=== PATIENT | male | born 1950 | race Caucasian/White ===

== ENCOUNTER 2020-09-13 15:32 | Outpatient (RCR) | payer BC, SELFPAY | END 2020-09-13 23:59 | LOC: IMMUN 15:32 | PROVIDERS: PCP Family Medicine; Visit Provider Family Medicine | DX: Z23 Encounter for immunization (principal) | CPT/HCPCS: 0011A; 0012A ==

== ENCOUNTER → 2021-05-03 14:23 | Outpatient (CLI) | payer BC, SELFPAY ==
[2021-05-03 18:10] LABS: Absolute Lymphocyte Count 1.21 X10^3/uL (0.83-4.51); Absolute Neutrophil Count 3.6 X10^3/uL (2.0-7.7); Basophil# 0.04 X10^3/uL; Basophil% 0.7 % (0-1); Eosinophil# 0.18 X10^3/uL; Eosinophils% 3.2 % (0-5); Hematocrit 42.1 % (40-54); Hemoglobin 14.4 g/dL (13.0-16.5); Lymphocyte # 1.21 X10^3/ul (0.83-4.51); Lymphocyte % 21.8 % (19-41); Mean Corp Hgb Conc 34.2 g/dL (32-36); Mean Corpuscular Volume 90.5 fL (80-94); Mean Platelet Vol. 9.2 fl (6.2-12.0); Monocyte# 0.55 X10^3/uL; Monocyte% 9.9 % (0-10); NRBC Flagged by Analyzer 0 % (0-5); Neutrophil # 3.55 X10^3/uL (2.7-7.7); Neutrophil % 64.2 % (47-70); Platelet Count 374 K/mm3 (150-450); RBC Distribution Width CV 12.6 % (11.6-14.6); RBC Distribution Width SD 41.5 fl (35.1-43.9); Red Blood Count 4.65 M/mm3 (4.6-6.2); White Blood Count 5.5 K/mm3 (4.4-11.0)
[2021-05-03 18:31] LABS: Erythrocyte Sedimentation Rate 2 mm/hr (0-20)
[2021-05-03 19:03] LABS: ALB/GLOB Ratio 1.1 RATIO (0.9-2.4); AST(SGOT) 18 U/L (15-37); Alanine Aminotransfer ALT/SGPT 25 U/L (16-61); Albumin, Serum 3.7 g/dL (3.2-5.0); Alkaline Phosphatase 57 U/L (45-117); Anion Gap 11 (5-15); BUN 14 mg/dL (7-18); BUN/Creat Ratio 14.4 RATIO (10-20); CRP < 2.90 mg/L (0.0-3.0); Calcium,Total 8.9 mg/dL (8.5-10.1); Chloride 104 mmol/L (98-107); Creatinine, Serum 0.98 mg/dL (0.70-1.30); EST Glomerular Filtration Rate 80 mL/min (>60); Est Glom Filt Rate - Afr Amer 97 mL/min (>60); Globulin 3.4 g/dL (2.2-4.2); Glucose 124 mg/dL (74-106); Potassium 3.9 mmol/L (3.5-5.1); Protein, Total 7.1 g/dL (6.4-8.2); Rheumatoid Factor < 10.0 IU/mL (<15); Sodium Level 139 mmol/L (136-145); Thyroid Stim Hormone (TSH) 0.89 uIU/mL (0.358-3.74)
[2021-05-05 15:08] LABS: PROEL- A/G Ratio 1.2 (0.7-1.7); PROEL- Albumin 3.6 g/dL (2.9-4.4); PROEL- Alpha-1 Globulin 0.3 g/dL (0.0-0.4); PROEL- Alpha-2 Globulin 0.6 g/dL (0.4-1.0); PROEL- Globulin, Total 2.9 g/dL (2.2-3.9); PROEL- TOTAL PROTEIN 6.5 g/dL (6.0-8.5)
[2021-05-05 15:20] LABS: ANTINUCLEAR ANTIBODIES DIRECT Negative (Negative)
== END ==
PROVIDERS: PCP Family Medicine; Referring Provider Family Medicine; Visit Provider Family Medicine
DX: R61 Generalized hyperhidrosis (principal)
CPT/HCPCS: 36415; 80053; 84165; 84443; 85025; 85652; 86038; 86140; 86431

== ENCOUNTER → 2022-08-11 | Outpatient (CLI) | payer BC, SELFPAY ==
[2022-08-11 18:16] LABS: AST(SGOT) 25 U/L (15-37); Alanine Aminotransfer ALT/SGPT 30 U/L (16-61); Cholesterol 186 mg/dL (200); High Density Lipoprotein 46 mg/dL; Triglycerides 253 mg/dL; Very Low Density Lipoprotein 51 mg/dL (5-40)
== END | disposition home or self-care (01) ==
LOC: MFPLAB 16:08
PROVIDERS: PCP Family Medicine; Referring Provider Family Medicine; Visit Provider Family Medicine
DX: E78.5 Hyperlipidemia, unspecified (principal); Z12.5 Encounter for screening for malignant neoplasm of prostate
CPT/HCPCS: 36415; 80061; 84153; 84450; 84460; G0103

== ENCOUNTER 2025-05-03 18:12 | Emergency (ER) | payer BC, SELFPAY ==
[2025-05-03 18:13] VITALS: BP 158/80; PULSE 87; RESP 16; TEMP 36.6; O2SAT 98; BMI 26.6
--- NOTE | 2025-05-03 20:06 | EDS_ITS ---
HPI History of Present Illness HPI Narrative: 74-year-old male left index finger laceration 1+ hours ago while cutting an onion in the kitchen. Tetanus is not up-to-date. He is right-hand dominant. He is not on blood thinners. Chief Complaint: Laceration Informant: patient and spouse/S.O. Occured/Mechanism Mechanism/Context: Yes injury Onset/Context/Timing Onset: Today and Hours Context: Sudden Onset Timing: Continuous Quality of Pain: Sharp Current Severity: Mild Maximum Severity: Mild Associated Symptoms Associated Symptoms: Negative for Parasthesia, Weakness or Loss of Funtion Narrative Narrative: 74-year-old male left index finger laceration about 1+ hours ago. Tetanus not up-to-date. Tetanus Immunization: Unknown Prior similar symptoms: No Recent Illness/Hospitalization: No PFSH PFSH Medical History Hyperlipidemia Seasonal allergic rhinitis Back pain Gastroesophageal reflux disease Home Medications ?Medication ?Instructions ?Recorded ?Last Taken ?Type atorvastatin 20 mg tablet 20 mg PO QHS 05/03/21 Unknow n History Allergy/AdvReac Type Severity Reaction Status Date / Time bee venom protein (honey bee) Allergy Anaphylaxis Verified 05/03/25 18:13 Family History Mother Breast cancer Surgical History History of bilateral inguinal hernia repair History of appendectomy History of tonsillectomy and adenoidectomy History of esophagogastroduodenoscopy (EGD) Social History Smoking Status: Never smoker ROS ROS ED ROS Narrative Denies recent illness. Constitutional Constitutional ED: Denies fever(s) Eyes Eyes: Denies blurry vision ENT ENT ED: Denies ear pain Cardiovascular Cardiovascular: Denies chest pain Respiratory/Chest Respiratory/Chest: Denies cough Gastrointestinal Gastrointestinal: Denies abdominal pain Genitourinary Genitourinary ED: Denies dysuria Musculoskeletal Musculoskeletal: Denies back pain Integumentary Denies abscess Neurologic Neurologic: Denies headache(s) Psychiatric Psychiatric: Denies anxiety Endocrine Endocrinology: Denies cold intolerance Hematologic/Lymphatic Hematologic/Lymphatic: Denies easy bleeding, easy bruising or lymphadenopathy Allergic/Immunologic Allergic/Immunologic ED: Denies mouth swelling, tongue swelling or urticaria EXAM Physical Exam Narrative Exam Narrative: 74-year-old male sitting upright in chair vital signs stable afebrile. No acute distress. H EENT exam pupils round react light. Moist mutes members. Neck nontender no JVD. Lungs clear to auscultation bilaterally. Heart regular rhythm no murmur. Chest wall ribs nontender. Abdomen soft nontender. Moving all 4 extremities. Neurovascular intact. Left hand left index finger on the radial side he has a laceration parallel to the edge of the left index finger nail. It is probably 2 inches in length. He has full flexion extension all digits of the hand. Normal touch sensation. The wound does separate. It will need to be pared. No signs of infection or foreign body. No bony deformity or bony tenderness. No joint involvement. Normal range of motion. Const Vital Signs: 05/03/25 18:13 Temperature 97.9 F Temperature Source Temporal Pulse Rate 87 Respiratory Rate 16 Blood Pressure 158/80 H Blood Pressure Mean 106 Pulse Ox 98 Oxygen Delivery Method Room Air MDM MDM MDM Narrative Medical decision making narrative: 74-year-old male finger laceration 1 to 2 hours ago. Needs repaired. Tetanus will be updated. Area will be cleaned with Shur-Clens washed and irrigated with saline. Explored. Anesthetized with digital nerve block using lidocaine. And suture repaired using 4-0 Ethilon sutures. History & Record Review Discussion w/independent historian: Patient and Family Procedures Lacerations Left index finger laceration repair:: Length: 2 in Depth: Sub Q Shape: Linear Prep: Shure-Clens Laceration repair: Digital block, Irrigated, Lidocaine and Skin sutures Number of Sutures/[place]: 6 Suture Information: Ethilon, Simple and 4-0 Comment: Left index finger laceration. Linear. Parallel nail. Digital block. Cleaned with Shur-Clens washed and irrigated with saline. Explored. Closed using 6, 4-0 Ethilon suture. Proper hemostasis wound closure obtained. Patient instructed on wound care and suture removal. Discharge Plan Triage Chief Complaint: Laceration ED Provider: Nicolas Garcia Dx/Rx/DC Orders Clinical Impression: Laceration of left index finger Instructions: ED Laceration Extremity Prescriptions: No Action atorvastatin 20 mg tablet 20 mg PO QHS Primary Care Provider: Luis Eduardo Whiting Referrals: Luis Eduardo Whiting MD [Primary Care Provider, Family Practice] - 10 Day for suture removal Activity Restrictions/Additional Instructions: Ice and elevate to decrease pain and swelling. Tylenol and Motrin for pain. Keep the area clean clean daily with soap and water dry thoroughly. Do not let it soak in water. Antibiotic ointment. Watch for any signs of infection such as pus, red streaks, fever or worsening swelling if seen return. Stitches out about 10 days. Do not wear jewelry on this hand and the swelling goes down. Print Language: Polish Disposition Disposition: Home, Self Care
--- OUTSIDE RECORDS SUMMARY | 2025-05-03 20:07 | XMS RPT_ITS | CCD ---
Author Organization [facility] Care Team Providers Care Preschool Paraprofessional Name Role Phone Unavailable Primary Care Provider Unavailabl e PHYSICIAN, NONE Primary Care Physician Unavailab YURIY Rivero Attending Unavailable PHYSICIAN, NONE Primary Care Unavailable Ne Gaitan Referring Unavailable Ne Gaitan Primary Care Unavailable Azam Rivera Attending Unavailable Allergies Allergy Classification Reported Allergen(s) Allergy Type Date of Onset Reaction(s) Facility (1 source) bee venom protein (honey bee) Drug allergy (disorder) 03-20-2024 [facility] Repository Medications Completed/Discontinued Medications Medication Drug Class(es) Dates Sig (Normalized) Sig (Original) atorvastatin 20 mg oral tablet (2 sources) HMG-CoA Reductase Inhibitor Start: 03-10-2020 take 1 tablet by mouth once daily at bedtime atorvastatin (LIPITOR) 20 mg tablet Take 20 mg by mouth daily at bedtime. 0 09/04/2022 Active Comment on above: Take 20 mg by mouth daily at bedtime. Problems Problem Classification Problem Date Documented Date Episodic/Chronic Noninfectious gastroenteritis (1 source) Gastroenteritis; Translations: [Noninfective gastroenteritis and colitis, unspecified] Episodic Other injuries and conditions due to external causes (1 source) Injury of upper extremity; Translations: [Unspecified injury of left wrist, hand and finger(s), initial encounter] Onset: 08-30-2023 Episodic Results Test Name Value Interpretation Reference Range Facility Urgent Care Visit Reporton 0 03-20-2024 Urgent Care Visit Report [facility] [address], [address] [place], [place] [address] OFFICE VISIT Date of Service: 03/20/24 MR#: [id number] Acct: [id number] Name: SARAH WADE Rep #: [id number] : 1950 Provider: REMY Lamas Age/Sex: 73/M Location: [facility] Status: Signed Intake Vital Signs 05/03/21 13:07 03/20/24 12:17 Height 5 ft 11 in 6 ft Weight: 181 lb 8 oz BMI 24.6 BP 110/58 L Blood Pressure Location Lt brachial Position Sitting Respiration 15 Pulse 76 Pulse Source NIBP Temp 98.3 F Temp Source Temporal Pulse Oximetry (%) 97 Oxygen Delivery Method room air Intake Visit Reasons: BODY ACHES Chief Complaint: WATERMAN, BA, fever, fatigue [employer] Pack[employer] Required: No Is patient in pain?: Yes Allergies bee venom protein (honey bee) Allergy (Verified 03/20/24 12:07) Anaphylaxis Medications ???Medication ???Instructions ???Recorded ???Confirmed ???Type atorvastatin 20 mg tablet tablet PO 05/03/21 03/20/24 History loratadine 10 mg tablet (Claritin) 10 mg PO DAILY PRN 05/03/21 03/20/24 History dexamethasone 6 mg tablet 6 mg PO DAILY #5 tabs 03/20/24 03/20/24 Rx esomeprazole magnesium 20 mg 20 mg PO BID PRN 03/20/24 03/20/24 History capsule,delayed release (Nexium) Have you fallen in the past year?: No Nurse's Note: WATERMAN, BA, fever, fatigue x 3 days. denies cough, congestion PFSH Medical History (Updated 03/20/24 @ 12:59 by Azma ALBERTO, PA) Hyperlipidemia Seasonal allergic rhinitis Back pain Gastroesophageal reflux disease Surgical History (Updated 05/03/21 @ 13:06 by Tori Mahajan) History of bilateral inguinal hernia repair History of appendectomy History of tonsillectomy and adenoidectomy History of esophagogastroduodenoscopy (EGD) Family History (Updated 05/03/21 @ 13:07 by Tori Mahajan) Mother Breast cancer Social History (Updated 05/03/21 @ 13:07 by Tori Mahajan) Smoking Status: Never smoker HPI HPI Chief Complaint: WATERMAN, BA, fever, fatigue Details: SARAH WADE, is a 73 M who presents to the office today for complaint of headache, body ache, fever and fatigue for the past 2 to 3 days. Patient denies hemoptysis, shortness of breath or difficulty breathing. He reports a fever Tmax of 101.3 ???F yesterday. No nausea, vomiting or diarrhea. No loss of taste or smell. No other associated symptoms or alleviating/aggravating factors. ROS Const Constitutional: No other (6 system ROS completed with pertinent findings in the HPI otherwise normal.) Exam Const General: cooperative and well developed HENMT Head: normal to inspection and atraumatic Ears: hearing grossly normal bilaterally Nose: nasal discharge clear Face and sinus: normal facial exam Mouth: oral mucosae normal Throat: abnormal tonsil bilaterally hypertrophy 1+ Resp Effort Inspection: normal respiratory effort and no audible wheezes Auscultation: Bilateral: Clear to Auscultation Cardio Palpation: normal PMI Rate: regular rate Rhythm: regular rhythm Neuro General: patient alert and CN's II-XI intact bilaterally Psych Appearance: grossly normal Mental Status: mental status grossly normal Results POC SIGRID Covid FluAB PCR POC Sigrid Covid PCR Detected Last Edit by Tori Mahajan on 03/20/24 12:35 POC SIGRID FLU NOT DETECTED FLU A B Last Edit by Tori Mahajan on 03/20/24 12:35 Coding Level of Care Code Off vis,new,level 3 Diagnoses COVID-19 U07.1 Assessment and Plan Assessment and Plan (1) COVID-19: Status: Acute Plan: Patient tested positive for COVID and negative for influenza in the office today. Encouraged to get plenty of rest, drink lots of clear liquids, and use Tylenol or Ibuprofen (unless contraindicated) for fever and comfort. Patient also educated on other symptomatic management techniques. To be seen in 7-10 days if no improvement; sooner if worsening of symptoms. Patient advised of potential red flags and when appropriate to report to the ED. Patient verbalized understanding and agreement with all the above. Orders: Orders POC Sigrid Covid FLUAB PCR Today Medications: New dexamethasone 6 mg PO DAILY 5 tabs 0RF Clinical Quality Measures Falls Risk Screening/Assistive Devices Have you fallen in the past year?: No 03/20/24 1259 Date Azam ALBERTO Cosigner Signature: Date (if applicable) CC: Normal [facility] XR HAND MINIMUM 3 VIEWS LEFT on 08-30-2023 XR HAND MINIMUM 3 VIEWS LEFT ORIGINAL EXAMINATION: THREE XRAY VIEWS OF THE LEFT HAND08/30/2023 11:14 am COMPARISON: None HISTORY: ORDERING SYSTEM PROVIDED HISTORY: Reason for Exam: pain Crush injury x2 days ago, pain in 1st and 2nd metacarpals FINDINGS: There is no definite acute fracture or dislocation. Small well corticated ossicle at the dorsal aspect of the 3rd PIP joint on the lateral view only is not an acute fracture. Similarly a subtle lucency in the dorsal base of the 4th middle phalanx is of unlikely significance. Tiny ossicle at the tip of the 3rd terminal tuft is probably nonacute finding also. Degenerative changes at multiple levels most prominent in the 3rd MCP joint and metacarpal head. The carpal arcs appear grossly intact. No radiopaque foreign body. IMPRESSION: No definite acute fracture. Correlate findings at the 3rd and 4th PIP joints and terminal tuft of the 3rd digit with clinical evaluation and point tenderness. I have personally reviewed the images of this examination and agree with the resident's findings and interpretations. Interpreted by: Andrew Gaspar MD Preliminary Report By: Betzaida Hernandez Electronically signed By Andrew Gaspar MD Dictated Date: 08/30/2023 11:21:35 AM Prelim Date: 08/30/2023 11:31:18 AM Sign Date: 08/30/2023 11:33:51 AM Ordering Provider: YURIY Mckenna [facility] CNOVnoemy 10-23-2022 CNOV Office Visit ([facility] ) SARAH WADE ([id number]) 1950 M Date Time Provider Department 10/23/22 1:15 PM DIYA PETERS [facility] During your visit today, we recorded the following information about you: Temperature Pulse Respiration Blood pressure 98.1 degrees 80/minute 16/minute 100/62 Weight 77.6 kg REMY Russell 10/23/2022 1:39 PM Signed This note was created using [employer]. Subjective Sarah Wade is a 72 year old male. HPI 72-year-old male presents for vomiting and diarrhea since last night. Patient states he has been having vomiting and diarrhea, chills since yesterday evening. He had 1 episode of vomiting today. He has been drinking Gatorade and able to keep that down. He had a few bouts of diarrhea today. No blood or tarry stool. He denies any fevers. He states that he has had 3 bouts of this vomiting and diarrhea in the past month or so. He states that usually lasts about a day and then goes away on its own. This episode just started last night. He denies any abdominal pain. No chest pain or shortness of breath. No cough or URI symptoms. No other complaints. No past medical history on file. No past surgical history on file. ALLERGIES Patient has no known allergies. MEDICATIONS atorvastatin (LIPITOR) 20 mg tablet Take 20 mg by mouth daily at bedtime. No family history on file. Review of Systems Constitutional: Positive for chills. Negative for fever. HENT: Negative for congestion and sore throat. Respiratory: Negative for cough and shortness of breath. Gastrointestinal: Positive for diarrhea, nausea and vomiting. Objective BP 100/62 Pulse 80 Temp 36.7 ?C (98.1 ?F) Resp 16 Wt 77.6 kg (171 lb) SpO2 96% Physical Exam Vitals and nursing note reviewed. Constitutional: General: He is not in acute distress. Appearance: Normal appearance. He is not toxic-appearing. HENT: Nose: Nose normal. Mouth/Throat: Mouth: Mucous membranes are moist. Eyes: Conjunctiva/sclera: Conjunctivae normal. Cardiovascular: Rate and Rhythm: Normal rate and regular rhythm. Pulmonary: Effort: Pulmonary effort is normal. Breath sounds: Normal breath sounds. Abdominal: General: Abdomen is flat. Palpations: Abdomen is soft. Tenderness: There is no abdominal tenderness. Skin: General: Skin is warm and dry. Neurological: Mental Status: He is alert. Assessment and Plan ASSESSMENT/PLAN: 1. Gastroenteritis - ICD9: 558.9, ICD10: K52.9 -Likely viral. -Able to eat and drink today. Recommend bland diet, plenty of fluids, rest. -Recommend follow-up with PCP if these bouts of vomiting and diarrhea continue. May need referral to GI. -No abdominal pain on exam, no fevers. I do not believe ER evaluation needed at this time. Likely virus -Note given for work. Diagnosis and treatment plan were discussed and questions were answered to the patient's satisfaction. Pt acknowledged understanding of concepts and follow up plan. Specific signs and symptoms that would indicate the need for higher level of care were discussed in detail warranting prompt ER evaluation. REMY Russell Referring Provider: SELF [200] Allergies As of Date: 10/23/2022 (No Known Allergies) Date Reviewed: 10/23/2022 Reviewed by: Tayler Mccauley - Fully Assessed Reason for Visit: Diarrhea [35] Cmt: fatigue, chills, vomiting x last night, has had 3 times this month Primary Visit Diagnosis:Gastroenteritis [K52.9] Prescriptions as of 10/23/2022 - atorvastatin (LIPITOR) 20 mg tablet Take 20 mg by mouth daily at bedtime. Problem List As Of Date: 10/23/2022 (None) Letter Text Encounter Status:Closed by DIYA PETERS on 10/23/22 Normal [facility] Vital Signs Date Time Vital Sign Value Performing Clinician Facility 08-30-2023 10:56-0500 Body height 182.9 cm YURIY MONROY MD [facility] 08-30-2023 10:56-0500 Body temperature 98.42 [degF] YURIY MONROY MD [facility] 08-30-2023 10:56-0500 Body weight 81.8 kg YURIY MONROY MD [facility] 08-30-2023 10:56-0500 Diastolic Blood Pressure Non-Invasive 93 mm[Hg] YURIY MONROY MD [facility] 08-30-2023 10:56-0500 Heart rate 96 /min YURIY MONROY MD [facility] 08-30-2023 10:56-0500 Respiratory rate 18 /min YURIY MONROY MD [facility] 08-30-2023 10:56-0500 Systolic Blood Pressure Non-Invasive 163 mm[Hg] YURIY MONROY MD [facility] 10-23-2022 13:19-0400 Body temperature 98.1 [degF] Krislyn Aberegg PA Work Phone: [facility] 10-23-2022 13:19-0400 Body weight 77.56 kg Krislyn Aberegg PA Work Phone: [facility] 10-23-2022 13:19-0400 Diastolic blood pressure 62 mm[Hg] Krislyn Aberegg PA Work Phone: [facility] 10-23-2022 13:19-0400 Heart rate 80 /min Krislyn Aberegg PA Work Phone: [facility] 10-23-2022 13:19-0400 Respiratory rate 16 /min Krislyn Aberegg PA Work Phone: [facility] 10-23-2022 13:19-0400 SaO2% (BldA) [Mass fraction] 96 % Krislyn Aberegg PA Work Phone: [facility] 10-23-2022 13:19-0400 Systolic blood pressure 100 mm[Hg] Krislyn Aberegg PA Work Phone: [facility] Encounters Encounter Date Encounter Type Care Provider Facility Start: 03-20-2024 End: 03-20-2024 [facility] Facility:[facility] Start: 08-30-2023 End: 08-30-2023 Emergency department patient visit YURIY MONROY Facility:[facility] Start: 08-30-2023 End: 08-30-2023 Emergency department patient visit YURIY MONROY MD [facility] Start: 10-23-2022 End: 10-23-2022 ambulatory Facility:[facility] Start: 10-23-2022 End: 10-23-2022 Patient encounter procedure Diya ALBERTO Work Phone: [facility] Comment on above: Gastroenteritis (Carla sally Dx) Plan of Treatment Date Care Activity Detail Author Start: 07-16-2022 ADVANCE DIRECTIVE DISCUSSION ADVANCE DIRECTIVE DISCUSSION [facility] Start: 07-16-2022 DEPRESSION ASSESSMENT DEPRESSION ASS ESSMENT [facility] Start: 2013 PNEUMOCOCCAL: 65+ (1 - PCV) PNEUMOCOCCAL: 65+ (1 - PCV) [facility] Start: 1998 SHINGRIX VACCINE (1 of 2) SHINGRIX V ACCINE (1 of 2) [facility] Start: 1993 COLOGUARD (FIT-DNA) COLOGUARD (FIT-D NA) [facility] Start: 1993 Colonoscopy COLONOSCOPY [facility] Start: 1993 COLORECTAL CANCER SCREENING COLORECTAL CANCER SCREENING [facility] Start: [address] COLONOGRAPHY [facility] Start: 1993 DIABETES SCREEN DIABETES SCREEN [facility] Start: 1993 FECAL OCCULT BLOOD FECAL OCCULT BLOO D [facility] Start: 1993 SIGMOIDOSCOPY SIGMOIDOSCOPY [facility] Start: 1983 LIPID SCREEN LIPID SCREEN [facility] Start: 1967 Urine microalbumin profile DTAP,TDAP ,TD (1 - Tdap) [facility] Start: 1966 HEPATITIS C SCREENING HEPATITIS C LISA ENRIQUEZ [facility] Payers Date Payer Category Payer Self-pay 2023 Unknown [id number] 2011 Unknown [employer] BLUE CARD PPO OOS [id number] 2011-Present [phone] [id number] [place] [address] PPO [id number] 2011 Unknown [id number] 1950 Unknown [id number] Unknown [id number] Social History Date Type Detail Facility Tobacco smoking stat [facility] Tobacco smoking consumption unknown [facility] Start: 1950 Sex Assigned At Not on file C [facility] Functional Status Date Assessment Result Facility 08-30-2023 Functional Status Independent [facility] Mental Status Date Assessment Result Facility 08-30-2023 Mental Status Orientation Oriented x 4 [facility] Discharge instructions 08-30-2023 Note Date & Type Note Facility 08-30-2023 Hospital Discharg e instructions Patient Education 08/30/2023 11:43:26 Muscle Strain, Extremity Muscle Strain in the Extremities A muscle strain is a stretching and tearing of muscle fibers. This causes pain, especially when you move that muscle. There may also be some swelling and bruising. Home care Keep the hurt area raised above heart level to reduce pain and swelling. This is especially important during the first 48 hours. Apply an ice pack over the injured area for 15 to 20 minutes every 3 to 6 hours. You should do this for the first 24 to 48 hours. You can make an ice pack by filling a plastic bag that seals at the top with ice cubes and then wrapping it with a thin towel. Be careful not to injure your skin with the ice treatments. Ice should never be applied directly to skin. Continue the use of ice packs for relief of pain and swelling as needed. After 48 hours, apply heat (warm shower or warm bath) for 15 to 20 minutes several times a day, or alternate ice and heat. You may use [id number] pain medicine to control pain, unless another medicine was prescribed. If you have chronic liver or kidney disease or ever had a stomach ulcer or gastrointestinal bleeding, talk with your healthcare provider before using these medicines. For leg strains: If crutches have been recommended, don t put full weight on the hurt leg until you can do so without pain. You can return to sports when you are able to hop and run on the injured leg without pain. Follow-up care Follow up with your healthcare provider, or as advised. When to seek medical advice Call your healthcare provider right away if any of these occur: The toes of the injured leg become swollen, cold, blue, numb, or tingly Pain or swelling increases [id number] [employer]. [address] [place] [address]. All rights reserved. This information is not intended as a substitute for professional medical care. Always follow your healthcare professional's instructions. Follow Up Care 08/30/2023 10:41:59 With:JENNIFER RODRIGUEZ Address: [address] [place] [address]- When:2-4 days [facility] Clinical Note 08-30-2023 Note Date & Type Note Facility 08-30-2023 Note Discharge Instructions Thank you for allowing [place] to assist you with your healthcare needs. The following is important discharge information regarding your hospital visit. Diagnosis from Today's Visit Left hand injury Wrist pain-swelling What to Do Next Instructions from Your Care Team No qualifying data available. Post Acute Orders No qualifying data available. You Need to Schedule the Following Appointments Follow Up with JENNIFER RODRIGUEZ When Within 2-4 days [facility] [place] [address]- Allergies NKA Medications Please ask your primary doctor or pharmacist before taking any other medication not listed, including over the counter drugs, herbal medications, vitamins and or supplements as they may interact with your home medications. What How Much When Instructions Last Dose Unchanged atorvastatin (atorvastatin 20 mg oral tablet) 1 tab(s) by mouth Once a day Please take this list to your next doctor s visit. Bring all medications you take, including over the counter medications, herbals and other supplements with you to your doctor s visit. Patients and families are reminded to discard old lists and to update any records with all medication providers or retail pharmacies. Education Materials Muscle Strain in the Extremities A muscle strain is a stretching and tearing of muscle fibers. This causes pain, especially when you move that muscle. There may also be some swelling and bruising. Home care Keep the hurt area raised above heart level to reduce pain and swelling. This is especially important during the first 48 hours. Apply an ice pack over the injured area for 15 to 20 minutes every 3 to 6 hours. You should do this for the first 24 to 48 hours. You can make an ice pack by filling a plastic bag that seals at the top with ice cubes and then wrapping it with a thin towel. Be careful not to injure your skin with the ice treatments. Ice should never be applied directly to skin. Continue the use of ice packs for relief of pain and swelling as needed. After 48 hours, apply heat (warm shower or warm bath) for 15 to 20 minutes several times a day, or alternate ice and heat. You may use gbbz-odz-[id number] pain medicine to control pain, unless another medicine was prescribed. If you have chronic liver or kidney disease or ever had a stomach ulcer or gastrointestinal bleeding, talk with your healthcare provider before using these medicines. For leg strains: If crutches have been recommended, don t put full weight on the hurt leg until you can do so without pain. You can return to sports when you are able to hop and run on the injured leg without pain. Follow-up care Follow up with your healthcare provider, or as advised. When to seek medical advice Call your healthcare provider right away if any of these occur: The toes of the injured leg become swollen, cold, blue, numb, or tingly Pain or swelling increases [phone] [employer]. [address] [place] [address]. All rights reserved. This information is not intended as a substitute for professional medical care. Always follow your healthcare professional's instructions. Additional Information VACCINATE! IT SAVES LIVES! Members of the community who have not yet received the COVID-19 vaccine and would like to receive it can visit one of [facility] vaccine clinics. There are many vaccine clinic locations within the [facility]. For locations and available times, please visit www.gettheshot.coronavirus.[place].gov/. It is important to note that some COVID mobile vaccine clinics are held outdoors and may be canceled in rainy or stormy conditions. To learn more about pediatric vaccinations (ages 5-11), we invite you to visit the [facility] webpage. [email or web address].[email or web address]/pages/[email or web address]-Ewtcj-Mibnqvsjprz-Frequently-Asked -Questions.html To learn more about the COVID-19 vaccine, we invite you to visit the CDC website for a list of frequently asked questions. https://www.cdc.gov/coronavirus/2019-n cov/vaccines/faq.html [employer] Patient Portal Access Instructions: Stay connected with your healthcare team and access your personal medical information anytime with the [employer] Patient Portal. If you would like a full copy of your medical records please contact the [facility] Medical Records Department Sunday through Sunday between 8a.m. and 4:30p.m. Please follow the directions below to access the portal: 1.Access the email account you provided upon registration to the [facility].2.Look for an invitation email from [facility].3.Open the email and access the invitation link: Accept Invitation to [employer]4.Fill in the required cifuentes to create your account. Sign into [email or web address] with your username and password that you created in the above steps to stay up to date. You can then view a summary of results, a summary of your visits, and the ability to download your summaries to your computer or send the information securely to a physician. Remember that your healthcare information is confidential, so carefully consider who you will allow to register on the [employer] Patient Portal for access to your information. You can also access the [employer] Patient Portal on the [employer] ajit. Simply click on Health Records under Health Data and then click on the [employer] logo. HOW TO SAFELY DISPOSE OF PRESCRIPTION MEDICATIONS Please use one of the following methods to safely dispose of your unused medications. 1.Use a drug disposal kit: the drug disposal pouch allows you to safely discard your old and unused drugs. Ask your nurse to give you one when you are discharged.2.Visit a local take-back location: Many local pharmacies and police departments have programs that collect old and unwanted prescription drugs. Call your local pharmacy or go to http://bit.SyndicateRoom/8H0Pi9m to find one close to you.3.Make use of household items: Use cat litter or old coffee grounds to dispose medications if other options are not available. Mix your drugs with these household products, seal them in an airtight container and throw it into the garbage. Call [facility]: [phone] to be sure your drugs can be disposed of in this way. Some medicines may require a different approach.4.Never flush your medications down the toilet. IF YOU HAVE BEEN PRESCRIBED AN OPIOIDS FOR PAIN If you have been prescribed an opioid (such as hydrocodone, oxycodone or morphine), it is critical to understand the possible side effects and risks of opioid pain medications. Even when taken as directed, opioids can have several side effects including: Tolerance, meaning you might need to take more of a medication for the same pain relief. Nausea, vomiting and/or constipation. Sleepiness, dizziness, dry mouth, confusion, depression or itching. Physical dependence, meaning you have withdrawal symptoms when a medication is stopped ? this can develop within a few days. KNOW YOUR RESPONSIBILITIES It is important to know exactly how much and how often to take the opioid pain medications you are prescribed. Never take opioids in higher amounts or more often than prescribed. Do not combine opioids with alcohol or other drugs that cause drowsiness, such as benzodiazepines, also known as benzos, including diazepam and alprazolam, muscle relaxants or sleep aids. Never sell or share prescription opioids. This is illegal. Store opioids in a secure place and out of reach of others (including children, family, friends and visitors). The last page(s) of this document has been signed and retained as a CHART COPY Signatures Patient Education Materials Muscle Strain, Extremity Medication Leaflets My discharge plan and instructions have been reviewed and explained to me and IDILSHAD JOHN R understand my current condition and have read and understand these discharge instructions. I have received a written copy of the plan/instructions. If I have questions, I am aware that I should contact my doctor. Patient/Resourcing Advisor Signature: _ Date/Time: Relationship to Patient: Witness Name/Signature: Date/Time: [facility] Clinical Note 08-30-2023 Note Date & Type Note Facility 08-30-2023 Note ORIGINAL EXAMINATION: THREE XRAY VIEWS OF THE LEFT HAND08/30/2023 11:14 am COMPARISON: None HISTORY: ORDERING SYSTEM PROVIDED HISTORY: Reason for Exam: pain Crush injury x2 days ago, pain in 1st and 2nd metacarpals FINDINGS: There is no definite acute fracture or dislocation. Small well corticated ossicle at the dorsal aspect of the 3rd PIP joint on the lateral view only is not an acute fracture. Similarly a subtle lucency in the dorsal base of the 4th middle phalanx is of unlikely significance. Tiny ossicle at the tip of the 3rd terminal tuft is probably nonacute finding also. Degenerative changes at multiple levels most prominent in the 3rd MCP joint and metacarpal head. The carpal arcs appear grossly intact. No radiopaque foreign body. IMPRESSION: No definite acute fracture. Correlate findings at the 3rd and 4th PIP joints and terminal tuft of the 3rd digit with clinical evaluation and point tenderness. I have personally reviewed the images of this examination and agree with the resident's findings and interpretations. Interpreted by: Andrew Gaspar MD Preliminary Report By: Betzaida Hernandez Electronically signed By Andrew Gaspar MD Dictated Date: 08/30/2023 11:21:35 AM Prelim Date: 08/30/2023 11:31:18 AM Sign Date: 08/30/2023 11:33:51 AM Ordering Provider: YURIY MONROY [facility] Progress note 10-23-2022 Note Date & Type Note Facility 10-23-2022 Note HNO ID: [id number] Author: REMY Russell Service: ? Author Type: Physician Cotton Tipper Type: Progress Notes Filed: 10/23/2022 1:39 PM Note Text: This note was created using NoteWriter. Subjective Sarah Wade is a 72 year old male. HPI 72-year-old male presents for vomiting and diarrhea since last night. Patient states he has been having vomiting and diarrhea, chills since yesterday evening. He had 1 episode of vomiting today. He has been drinking Gatorade and able to keep that down. He had a few bouts of diarrhea today. No blood or tarry stool. He denies any fevers. He states that he has had 3 bouts of this vomiting and diarrhea in the past month or so. He states that usually lasts about a day and then goes away on its own. This episode just started last night. He denies any abdominal pain. No chest pain or shortness of breath. No cough or URI symptoms. No other complaints. No past medical history on file. No past surgical history on file. ALLERGIES Patient has no known allergies. MEDICATIONS atorvastatin (LIPITOR) 20 mg tablet Take 20 mg by mouth daily at bedtime. No family history on file. Review of Systems Constitutional: Positive for chills. Negative for fever. HENT: Negative for congestion and sore throat. Respiratory: Negative for cough and shortness of breath. Gastrointestinal: Positive for diarrhea, nausea and vomiting. Objective BP 100/62 Pulse 80 Temp 36.7 ?C (98.1 ?F) Resp 16 Wt 77.6 kg (171 lb) SpO2 96% Physical Exam Vitals and nursing note reviewed. Constitutional: General: He is not in acute distress. Appearance: Normal appearance. He is not toxic-appearing. HENT: Nose: Nose normal. Mouth/Throat: Mouth: Mucous membranes are moist. Eyes: Conjunctiva/sclera: Conjunctivae normal. Cardiovascular: Rate and Rhythm: Normal rate and regular rhythm. Pulmonary: Effort: Pulmonary effort is normal. Breath sounds: Normal breath sounds. Abdominal: General: Abdomen is flat. Palpations: Abdomen is soft. Tenderness: There is no abdominal tenderness. Skin: General: Skin is warm and dry. Neurological: Mental Status: He is alert. Assessment and Plan ASSESSMENT/PLAN: 1. Gastroenteritis - ICD9: 558.9, ICD10: K52.9 -Likely viral. -Able to eat and drink today. Recommend bland diet, plenty of fluids, rest. -Recommend follow-up with PCP if these bouts of vomiting and diarrhea continue. May need referral to GI. -No abdominal pain on exam, no fevers. I do not believe ER evaluation needed at this time. Likely virus -Note given for work. Diagnosis and treatment plan were discussed and questions were answered to the patient's satisfaction. Pt acknowledged understanding of concepts and follow up plan. Specific signs and symptoms that would indicate the need for higher level of care were discussed in detail warranting prompt ER evaluation. REMY Russell [facility] History of Present illness Narrative 10-23-2022 REMY Russell - 10/23/2022 1:36 PM EDT Note Date & Type Note Facility 10-23-2022 History of Presen t illness Narrative This note was created using [employer]. Subjective Sarah Wade is a 72 year old male. HPI 72-year-old male presents for vomiting and diarrhea since last night. Patient states he has been having vomiting and diarrhea, chills since yesterday evening. He had 1 episode of vomiting today. He has been drinking Gatorade and able to keep that down. He had a few bouts of diarrhea today. No blood or tarry stool. He denies any fevers. He states that he has had 3 bouts of this vomiting and diarrhea in the past month or so. He states that usually lasts about a day and then goes away on its own. This episode just started last night. He denies any abdominal pain. No chest pain or shortness of breath. No cough or URI symptoms. No other complaints. No past medical history on file. No past surgical history on file. ALLERGIES Patient has no known allergies. MEDICATIONS atorvastatin (LIPITOR) 20 mg tablet Take 20 mg by mouth daily at bedtime. No family history on file. Review of Systems Constitutional: Positive for chills. Negative for fever. HENT: Negative for congestion and sore throat. Respiratory: Negative for cough and shortness of breath. Gastrointestinal: Positive for diarrhea, nausea and vomiting. Objective BP 100/62 Pulse 80 Temp 36.7 C (98.1 F) Resp 16 Wt 77.6 kg (171 lb) SpO2 96% Physical Exam Vitals and nursing note reviewed. Constitutional: General: He is not in acute distress. Appearance: Normal appearance. He is not toxic-appearing. HENT: Nose: Nose normal. Mouth/Throat: Mouth: Mucous membranes are moist. Eyes: Conjunctiva/sclera: Conjunctivae normal. Cardiovascular: Rate and Rhythm: Normal rate and regular rhythm. Pulmonary: Effort: Pulmonary effort is normal. Breath sounds: Normal breath sounds. Abdominal: General: Abdomen is flat. Palpations: Abdomen is soft. Tenderness: There is no abdominal tenderness. Skin: General: Skin is warm and dry. Neurological: Mental Status: He is alert. Assessment and Plan ASSESSMENT/PLAN: 1. Gastroenteritis - ICD9: 558.9, ICD10: K52.9 -Likely viral. -Able to eat and drink today. Recommend bland diet, plenty of fluids, rest. -Recommend follow-up with PCP if these bouts of vomiting and diarrhea continue. May need referral to GI. -No abdominal pain on exam, no fevers. I do not believe ER evaluation needed at this time. Likely virus -Note given for work. Diagnosis and treatment plan were discussed and questions were answered to the patient's satisfaction. Pt acknowledged understanding of concepts and follow up plan. Specific signs and symptoms that would indicate the need for higher level of care were discussed in detail warranting prompt ER evaluation. REMY Russell documented in this encounter [facility] Evaluation + Plan note Note Date & Type Note Facility Evaluation + Plan note No data available for this section [facility] Evaluation note Note Date & Type Note Facility Evaluation note Diagnosis Gastroenteritis- Primary Other and unspecified noninfectious gastroenteritis and colitis documented in this encounter [facility] Summary Purpose Family History No Family History Records Found No data available for this section No Family History Records FoundNo Family History Records Found Advance Directives No Advanced Directives Records FoundNo Advanced Directives Records FoundNo Advanced Directives Records Found Additional Source Comments Source Comments (unrecognize d section and content) In the event this informatio n is protected by the Federal Confidentiality of Alcohol and Drug Abuse Patient Records regulations: The Federal rules restrict any use of the information to criminally investigate or prosecute any alcohol or drug abuse patient.[facility] Reason for Visit (unrecogniz ed section and content) Reason Comments Diarrhea fatigue, chills, vom iting x last night, has had 3 times this month (unrecognized sect ion and content) No Status Records FoundNo Status Records FoundNo Status Records Found INFORMATION SOURCE (unrecogn ized section and content) DATE CREATED AUTHOR 10/26/2022 [facility] DATE CREATED AUTHOR AUTHOR'S ORGANIZ ATION 09/03/2023 [facility] ([place]) DATE CREATED AUTHOR AUTHOR'S ORGANIZ ATION 03/22/2024 [facility] FOR RECORDS PERTAINING TO PATIENTS WHO ARE OR HAVE BEEN ENROLLED IN A CHEMICAL DEPENDENCY/SUBSTANCEABUSE PROGRAM, SOME INFORMATION MAY BE OMITTED. This clinical summary was aggregated from multiple sources. Caution should be exercised in using it in the provision of clinical care. This summary normalizes information from multiple sources, and as a consequence, information in this document may materially change the coding, format and clinical context of patient data. In addition, data may be omitted in some cases. CLINICAL DECISIONS SHOULD BE BASED ON THE PRIMARY CLINICAL RECORDS. [facility] provides no warranty or guarantee of the accuracy or completeness of information in this document.
[2025-05-03] MEDS: Lidocaine 1% (20 ml mdv) 20 ML Vial 10 ML INFILT (20:20)
[2025-05-03 20:52] VITALS: BP 138/89; PULSE 81; RESP 16; TEMP 36.6; O2SAT 99
== END 2025-05-03 20:52 | disposition home or self-care (01) ==
PROVIDERS: Emergency Provider Emergency Medicine; PCP Family Medicine; Visit Provider Emergency Medicine
DX: S61.211A Laceration without foreign body of left index finger without damage to nail, initial encounter (principal); E78.5 Hyperlipidemia, unspecified; Z23 Encounter for immunization; K21.9 Gastro-esophageal reflux disease without esophagitis; W26.0XXA Contact with knife, initial encounter; Y93.G3 Activity, cooking and baking
CPT/HCPCS: 12001; 90471; 90715; 99284